=== PATIENT | male | born 1965 | race Caucasian/White ===

== ENCOUNTER 2025-04-28 12:00 | Outpatient (CLI) | payer OTHER, SELFPAY | END 2025-04-28 12:01 | disposition home or self-care (01) | LOC: NFLDREF 05-03 13:40 | PROVIDERS: PCP Family Medicine; Visit Provider Family Medicine | DX: N40.0 Benign prostatic hyperplasia without lower urinary tract symptoms (principal); G47.00 Insomnia, unspecified; Z12.5 Encounter for screening for malignant neoplasm of prostate; Z13.6 Encounter for screening for cardiovascular disorders | CPT/HCPCS: 80053; 80061; G0103 ==